=== PATIENT | female | born 1990 | race Caucasian/White ===

== ENCOUNTER 2021-08-22 17:19 | Emergency (ER) | payer OTHER, MEDICAID ==
[~2021-08-22] VITALS: Ht 175.3 cm; Wt 72.6 kg
[2021-08-22] MEDS ORDERED: KETOROLAC 60 MG/2 ML VIAL IM ONE (17:20)
--- NOTE | 2021-08-22 17:20 | NUR ---
PT BIBA TO BED 4
[2021-08-22 17:30] VITALS: BP 113/76
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
--- NOTE | 2021-08-22 17:34 | NUR ---
PT TAKEN TO XRAY VIA [facility]
--- NOTE | 2021-08-22 17:45 | NUR ---
PT RETURNED TO BED 4 FROM XRAY
--- NOTE | 2021-08-22 18:06 | NUR ---
PT FATHER BEDSIDE
[2021-08-22] MEDS ORDERED: ACET-8386 PO (18:31)
[2021-08-22] MEDS ORDERED: IBUP-2213 PO (18:31)
[2021-08-22 18:42] VITALS: BP 113/76
--- NOTE | 2021-08-22 18:43 | NUR ---
Patient discharged with v/s stable. Written and verbal after care instructions given and explained. Patient alert, oriented and verbalized understanding of instructions. Ambulatory with by parent. All questions addressed prior to discharge. ID band removed. Patient advised to follow up with PMD. Rx of IBUPROFEN AND HYDROCODONE/ACETAMINOPHEN given. Patient educated on indication of medication including possible reaction and side effects. Opportunity to ask questions provided and answered.
== END 2021-08-22 18:42 | disposition home or self-care (01) ==
LOC: MED 17:19
DX: S13.4XXA Sprain of ligaments of cervical spine, initial encounter (principal); V89.2XXA Person injured in unspecified motor-vehicle accident, traffic, initial encounter; Y93.89 Activity, other specified; Y92.89 Other specified places as the place of occurrence of the external cause; Y99.8 Other external cause status
CPT/HCPCS: 72040; 96372; 99283; J1885